=== PATIENT | male | born 1985 | race Caucasian/White ===

== ENCOUNTER → 2017-03-15 | Outpatient (CLI) | payer BC ==
[2017-03-15 11:13] LABS: MEAN CORPUSCULAR HGB CONC 32.9 g/dl (32.0-36.5); MEAN CORPUSCULAR VOLUME 88.2 fl (80.0-96.0); PLATELET COUNT, AUTOMATED 251 10^3/uL (150-450); RED CELL DISTRIBUTION WIDTH 12.8 % (11.5-14.5); WHITE BLOOD COUNT 10.3 10^3/uL (4.0-10.0)
[2017-03-15 11:39] LABS: ALBUMIN/GLOBULIN RATIO 1.33 (1.00-1.93); ALKALINE PHOSPHATASE 70 U/L (45-117); ALT/SGPT 29 U/L (12-78); ANION GAP 3 MEQ/L (8-16); AST/SGOT 15 U/L (7-37); BILIRUBIN,TOTAL 0.5 MG/DL (0.2-1.0); BLOOD UREA NITROGEN 13 MG/DL (7-18); CALCIUM LEVEL 8.9 MG/DL (8.5-10.1); CARBON DIOXIDE LEVEL 32 MEQ/L (21-32); CHLORIDE LEVEL 105 MEQ/L (98-107); CHOLESTEROL LEVEL 124 MG/DL (<200); CREATININE FOR GFR 0.87 MG/DL (0.70-1.30); GLOMERULAR FILTRATION RATE > 60.0 (>60); GLUCOSE, FASTING 85 MG/DL (70-105); POTASSIUM SERUM 4.9 MEQ/L (3.5-5.1); SODIUM LEVEL 140 MEQ/L (136-145); TRIGLYCERIDES LEVEL 77 MG/DL (<150)
== END ==
LOC: M LAB 10:07
PROVIDERS: ATTEND Family Medicine
DX: D64.9 Anemia, unspecified (principal); R53.83 Other fatigue; E03.9 Hypothyroidism, unspecified

== ENCOUNTER 2017-04-11 11:09 | Day surgery (SDC) | payer BC ==
[~2017-04-11] VITALS: Ht 175.3 cm; Wt 88.5 kg
[~2017-04-11 11:09] MED LIST: LANS30CA PO; LEVOTAB10 PO; SYMB16INH INH
[2017-04-11] MEDS ORDERED: NS 1,000 ML IV ONE (11:30)
[2017-04-11] MEDS ORDERED: PROPOFOL 200 MG/20 ML VIAL As Ordered ONE ×2 (11:37→12:19)
[2017-04-11] MEDS ORDERED: LIDOCAINE 2% INJ 100 MG/5 ML SDV (FOR ANES.) As Ordered ONE (11:37)
--- NOTE | 2017-04-11 12:29 | ROOR ---
Patient Name: Conrado Guy Procedure Date: 04/11/2017 12:03 PM Date of : 1985 Age: 31 Room: [facility] Gender: Male Note Status: Finalized Procedure: Total Colonoscopy to Cecum + ileoscopy + Bx Indications: Rectal bleeding, Family history of colon cancer Providers: Mikie Carty MD Referring MD: WESLEY THOMAS MD Requesting Provider: Medicines: Monitored Anesthesia Care Complications: No immediate complications. Procedure: Pre-Anesthesia Assessment: - The heart rate, respiratory rate, oxygen saturations, blood pressure, adequacy of pulmonary ventilation, and response to care were monitored throughout the procedure. The Colonoscope was introduced through the anus and advanced to the terminal ileum, with identification of the appendiceal orifice and IC valve. The colonoscopy was performed without difficulty. The patient tolerated the procedure well. The quality of the bowel preparation was good. Findings: The perianal and digital rectal examinations were normal. Non-bleeding internal hemorrhoids were found during retroflexion. The hemorrhoids were small and Grade I (internal hemorrhoids that do not prolapse). No other significant abnormalities were identified in a careful examination of the remainder of the colon. The terminal ileum contained multiple two mm ulcers. No bleeding was present. No stigmata of recent bleeding were seen. Biopsies were taken with a cold forceps for histology. A localized area of the mid ileum was congested. The exam was otherwise without abnormality on direct and retroflexion views. Impression: - Non-bleeding internal hemorrhoids. - Multiple ulcers in the terminal ileum. Biopsied. - Congested mucosa in the mid ileum. - The examination was otherwise normal on direct and retroflexion views. - The exam was otherwise normal to the cecum. Recommendation: - Patient has a contact number available for emergencies. The signs and symptoms of potential delayed complications were discussed with the patient. Return to normal activities tomorrow. Written discharge instructions were provided to the patient. - High fiber diet. - Discharge patient to home. - Continue present medications. - Await pathology results. - Telephone GI clinic for pathology results in 1 week. - Repeat colonoscopy for surveillance based on pathology results. - Return to GI office in 2 months. - Check Portal Online for Path Results.([email or web address] - The findings and recommendations were discussed with the patient's family. Mikie Carty MD Mikie Carty MD 04/11/2017 12:29:30 PM This report has been signed electronically. Number of Addenda: 0 Note Initiated On: 04/11/2017 12:03 PM Estimated Blood Loss: Estimated blood loss: none.
[2017-04-11 12:58] VITALS: BP 123/64
== END 2017-04-11 13:00 | disposition home or self-care (01) ==
LOC: M OPP 11:09
PROVIDERS: ATTEND Internal Medicine Gastroenterology
DX: K62.5 Hemorrhage of anus and rectum (principal); Z80.0 Family history of malignant neoplasm of digestive organs; K63.3 Ulcer of intestine; K63.89 Other specified diseases of intestine; K64.0 First degree hemorrhoids; R12 Heartburn; K21.9 Gastro-esophageal reflux disease without esophagitis; J45.909 Unspecified asthma, uncomplicated; F17.210 Nicotine dependence, cigarettes, uncomplicated; Z88.2 Allergy status to sulfonamides; Z79.899 Other long term (current) drug therapy

== ENCOUNTER → 2017-07-20 | Outpatient (CLI) | payer BC | LOC: M RAD 11:38 | DX: M54.2 Cervicalgia (principal) | CPT/HCPCS: 72052 ==